=== PATIENT | male | born 1945 | race Caucasian/White ===

== ENCOUNTER → 2018-07-02 | Outpatient (CLI) | payer MEDICARE, BC | LOC: COL.RAD 10:04 | DX: M25.552 Pain in left hip (principal) | CPT/HCPCS: J3301; Q9967 ==

== ENCOUNTER → 2018-09-18 | Outpatient (CLI) | payer MEDICARE, BC | LOC: COL.RAD 10:30 | DX: M25.552 Pain in left hip (principal) | CPT/HCPCS: J3301; Q9967 ==

== ENCOUNTER → 2018-12-31 | Outpatient (CLI) | payer MEDICARE, BC | LOC: COL.RAD 09:34 | DX: M25.552 Pain in left hip (principal) | CPT/HCPCS: J3301; Q9967 ==

== ENCOUNTER 2019-06-12 12:03 | Day surgery (SDC) | payer MEDICARE, BC ==
[~2019-06-12] VITALS: Ht 180.3 cm; Wt 86.2 kg
[2019-06-12] VITALS (11 sets, daily range): BP systolic 107–149; BP diastolic 40–77; PULSE 63–87; TEMP 98–98.5
[2019-06-12] MEDS ORDERED: NORVASC 5MG5 MG/TAB PO (14:10)
[2019-06-12] MEDS ORDERED: TRULICITY1.5 MG/0.5 SQ (14:10)
[2019-06-12] MEDS ORDERED: LIPITOR20 MG PO (14:11)
[2019-06-12] MEDS ORDERED: ASPIRIN 81M81 MG/TA2 PO (14:11)
[2019-06-12] MEDS ORDERED: PLAVIX 75MG TAB75 MG PO (14:13)
[2019-06-12] MEDS ORDERED: FLOVENT 220MCG7.9 GM IH (14:14)
[2019-06-12] MEDS ORDERED: AMARYL4 MG PO (14:15)
[2019-06-12] MEDS ORDERED: COZAAR100 MG PO (14:15)
[2019-06-12] MEDS ORDERED: GLUCOPHAGE1000 MG PO (14:16)
[2019-06-12] MEDS ORDERED: VIAGRA50 M1 PO (14:17)
--- NOTE | 2019-06-12 16:10 | NUR ---
Patient up from OR. Alert and oriented x 3. Shift assessment complete. Kamara to dependent drainage with clear yellow urine. CBI infusing at slow rate. Family at bedside. Denies pain at this time. IV fluids infusing via pump per orders. Denies further needs at this time.
--- NOTE | 2019-06-12 18:31 | NUR ---
Patient has done well this afternoon. CBI continues to infuse at slow rate. Kamara maintained to dependent drainage with clear yellow urine present. Will occassionally turn pink then clear up. Denies pain or further needs at this time. Tolerating oral intake.
--- NOTE | 2019-06-12 20:00 | NUR ---
Report received. 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 Assessment complete. VS stable. Denies pain. States he still cant feel his left lower extremity due to the spinal. CBI infusing at a slow rate-light pink return. Discussed plan of care as well as calling for assistance to get out of bed. Verbalizes understanding. Requesting sleeping pill at 2200. Denies any other questions or concerns. Call light within reach. Bed in low position. Will monitor.
--- NOTE | 2019-06-12 21:30 | NUR ---
Called to desk c/o pain to bladder stating "I feel as if I need to pee and cant." CBI going at a moderate rate-urine light pink in color without clots noted. Bladder does feel disteneded. Irrigated with 60mls NS-immediate return-no clots noted. Adjusted tubing and laid back at 30 degree angle. Bladder drained 400mls light pink urine-no clots noted. States pain is better. Rate adjusted to slow- Will monitor to maintain light pink color.
[2019-06-13 03:50] VITALS: BP 157/75; PULSE 99; TEMP 98.3
--- NOTE | 2019-06-13 05:13 | NUR ---
Has rested well this shift after taking ambien. Denies pain. CBI has remained light pink all night at a slow rate. Tolerating PO with N/V. Denies questions or concerns. Call light within reach. WIll monitor.
[2019-06-13 08:28] VITALS: BP 133/72; PULSE 85; TEMP 98.4
--- NOTE | 2019-06-13 09:49 | NUR ---
Initial visit; Patient thanked Pipe Organ Mechanic for looking in on him and offering God's blessings.
--- NOTE | 2019-06-13 10:00 | NUR ---
Patient CBI has been clamped. Urine remains peach colored. Primed and pulled per orders. Primed bladder with 200 ml of NS. Aspirated 30 ml of fluid from balloon. Tolerated procedure well. Educated patient on 6 cup routine. Patient voided after de [place]sa pulled, pink clear urine .
--- NOTE | 2019-06-13 11:16 | NUR ---
SW met with the patient to discuss discharge plan. The patient [place] [facility] with his , Jinny. He reports independence with ADLs and has a prosthesis and crutches. The patient's PCP is Dr. Matt Coker and he receives his medications at [facility]. He reports no difficulties obtaining his meds. The patient does not have advanced directives in EMR, but he states that he does have them completed. He states his is his DPOA-HC. The patient plans to return home with his upon discharge. No additional needs at this time.
[2019-06-13 11:56] VITALS: BP 130/68; PULSE 77; TEMP 97.8
--- NOTE | 2019-06-13 15:11 | NUR ---
Patient states he has had x4 bloody bowel movements.
[2019-06-13 15:23] VITALS: BP 149/62; PULSE 80; TEMP 98.4
--- NOTE | 2019-06-13 17:20 | NUR ---
Contacted Dr. Baig for discharge orders. TORB orders entered into the computer
--- NOTE | 2019-06-13 18:00 | NUR ---
Discharge instructions provided to patient. Patient educated on increasing fluid intake to keep urine flowing freely. Educated on activity restrictions and follow up appointment. Patient instructed to hold blood thinner for at least [address] Baig. Educated patient on when to call provided and emphasized increasing fluid intake. All questions answered. INT to left hand discontinued. Catheter tip intact. Patient out by wheelchair with surgical staff and spouse.
== END 2019-06-13 18:00 | disposition home or self-care (01) ==
LOC: SDCO 12:03 → SURG 16:26 → SDCO 06-13 18:00
DX: N40.1 Benign prostatic hyperplasia with lower urinary tract symptoms (principal); N13.8 Other obstructive and reflux uropathy; R35.0 Frequency of micturition; R39.15 Urgency of urination; R39.12 Poor urinary stream; R35.1 Nocturia; E11.9 Type 2 diabetes mellitus without complications; I10 Essential (primary) hypertension; E78.5 Hyperlipidemia, unspecified; J30.2 Other seasonal allergic rhinitis; I65.29 Occlusion and stenosis of unspecified carotid artery; F17.210 Nicotine dependence, cigarettes, uncomplicated; Z89.611 Acquired absence of right leg above knee; K21.9 Gastro-esophageal reflux disease without esophagitis; G89.29 Other chronic pain; M79.604 Pain in right leg; Z79.82 Long term (current) use of aspirin; Z79.84 Long term (current) use of oral hypoglycemic drugs; Z79.02 Long term (current) use of antithrombotics/antiplatelets; Z79.52 Long term (current) use of systemic steroids; Z80.0 Family history of malignant neoplasm of digestive organs; Z83.3 Family history of diabetes mellitus; Z84.1 Family history of disorders of kidney and ureter; Z85.828 Personal history of other malignant neoplasm of skin
CPT/HCPCS: OP; J2250; J2405; J2704; J3010; J3480; J7030; J7042

== ENCOUNTER 2019-07-06 18:57 | Emergency (ER) | payer MEDICARE, BC ==
[~2019-07-06] VITALS: Ht 182.9 cm; Wt 86.4 kg
[~2019-07-06 18:57] MED LIST: AMARYL4 MG PO; ASPIRIN 81M81 MG/TA2 PO; COZAAR100 MG PO; FLOVENT 220MCG7.9 GM IH; GLUCOPHAGE1000 MG PO; LIPITOR20 MG PO; NORVASC 5MG5 MG/TAB PO; PLAVIX 75MG TAB75 MG PO; TRULICITY1.5 MG/0.5 SQ; VIAGRA50 M1 PO
[2019-07-06 19:46] LABS: HEMATOCRIT 42.6 % (42.0-52.0); HEMOGLOBIN 13.6 g/dl (13.5-18.0); MEAN CELL VOLUME 81 fl (80.0-100.0); MEAN CORPUSCULAR HEMOGLOBIN 26 pg (27.0-31.0); MEAN CORPUSCULAR HGB CONC 32 g/dl (33.0-37.0); MEAN PLATELET VOLUME 9.7 fl (7.4-10.4); PLATELET COUNT 365 K/mm3 (130-400); RED BLOOD COUNT 5.24 M/mm3 (4.20-5.60); REDCELL DISTRIBUTION WIDTH-CV 15.1 % (11.5-14.5)
[2019-07-06 20:07] LABS: ALANINE AMINOTRANSFERASE 12 U/L (21-72); ALBUMIN 4.5 gm/dL (3.5-5.0); ALKALINE PHOSPHATASE 101 U/L (50-136); ANION GAP 13 mmol/L (7-16); AST,SGOT 21 U/L (15-37); BILIRUBIN,TOTAL 0.4 mg/dL (0.0-1.0); BLOOD UREA NITROGEN 13 mg/dL (9-20); CALCIUM 9.4 mg/dL (8.4-10.2); CARBON DIOXIDE 20 mmol/L (22-30); CHLORIDE 101 mmol/L (98-107); CREATININE, serum 0.77 (0.66-1.25); GLUCOSE 217 mg/dL (74-106); POTASSIUM 4.3 mmol/L (3.4-5.0); SODIUM 135 mmol/L (137-145); TOTAL PROTEIN 7.4 gm/dL (6.4-8.2)
[2019-07-06 20:18] LABS: TROPONIN-I < 0.012 ng/mL (0.000-0.035)
[2019-07-06 20:34] LABS: COLLECTION METHOD IN
[2019-07-06 20:49] LABS: INR 1.3 (0.8-3.0); PROTHROMBIN TIME 15.1 SECONDS (9.7-12.8)
[2019-07-06 21:03] LABS: SQUAMOUS EPITHELIAL None Seen /hpf; URINE BACTERIA None Seen /hpf; URINE RBC >50 /hpf
[2019-07-06 21:07] LABS: PH 7 (5-8); URINE APPEARANCE Turbid; URINE BILIRUBIN Negative (NEGATIVE); URINE BLOOD 3+ (NEGATIVE); URINE COLOR Red; URINE GLUCOSE 2+ (NEGATIVE); URINE KETONE 1+ (NEGATIVE); URINE LEUKOCYTE ESTERASE Negative (NEGATIVE); URINE NITRATE Negative (NEGATIVE); URINE PROTEIN(semi-quant) 3+ (NEGATIVE); URINE UROBILINOGEN Negative (NEGATIVE)
[2019-07-06 21:11] LABS: BAND 1 % (0-10); BASOPHIL 1 % (0-2); EOSINOPHIL 1 % (0-4); LYMPHOCYTE 14 % (20.0-51.0); NEUTROPHILS 75 % (42.0-75.2); PLATELET ESTIMATE NORMAL (NORMAL)
[2019-07-06 22:04] VITALS: TEMP 97.7
[2019-07-06 23:44] VITALS: BP 153/79; PULSE 90
== END 2019-07-06 23:44 | disposition short-term general hospital (02) ==
LOC: COL.ER 18:57
PROVIDERS: Emergency Medicine
DX: R31.9 Hematuria, unspecified (principal); R33.9 Retention of urine, unspecified; E78.5 Hyperlipidemia, unspecified; I10 Essential (primary) hypertension; E11.9 Type 2 diabetes mellitus without complications; F17.210 Nicotine dependence, cigarettes, uncomplicated; Z79.82 Long term (current) use of aspirin; Z79.02 Long term (current) use of antithrombotics/antiplatelets; Z79.84 Long term (current) use of oral hypoglycemic drugs
CPT/HCPCS: J1170; J2405; J3010; J7030

== ENCOUNTER → 2019-08-29 | Outpatient (CLI) | payer MEDICARE, BC | LOC: COL.RAD 08:39 | DX: M79.18 Myalgia, other site (principal); M25.552 Pain in left hip | CPT/HCPCS: J3301; Q9967 ==

== ENCOUNTER → 2020-05-11 | Outpatient (CLI) | payer MEDICARE, BC ==
[~2020-05-11] VITALS: Ht 182.9 cm; Wt 85.0 kg
[~2020-05-11] MED LIST changes: +TRESIBA100 UNIT/1 SQ
[2020-05-11 09:21] VITALS: BP 165/86; PULSE 91
[2020-05-11 10:37] VITALS: BP 164/83; PULSE 87
== END ==
LOC: COL.RAD 09:00
DX: M54.5 Low back pain (principal); G89.29 Other chronic pain
CPT/HCPCS: J3301

== ENCOUNTER → 2020-06-25 | Outpatient (CLI) | payer MEDICARE, BC ==
[2020-06-25 13:55] VITALS: BP 173/82; PULSE 87
[2020-06-25 14:56] VITALS: BP 154/84; PULSE 75
== END ==
LOC: COL.RAD 13:29
DX: M54.40 Lumbago with sciatica, unspecified side (principal)
CPT/HCPCS: J3301; Q9965

== ENCOUNTER → 2020-08-06 | Outpatient (CLI) | payer MEDICARE, BC ==
[~2020-08-06] VITALS: Ht 182.9 cm; Wt 89.5 kg
[2020-08-06 09:46] VITALS: BP 172/77; PULSE 93
[2020-08-06 11:15] VITALS: BP 173/77; PULSE 99
== END ==
LOC: COL.RAD 09:30
DX: M51.26 Other intervertebral disc displacement, lumbar region (principal); M43.16 Spondylolisthesis, lumbar region; M48.061 Spinal stenosis, lumbar region without neurogenic claudication; M47.816 Spondylosis without myelopathy or radiculopathy, lumbar region; M54.40 Lumbago with sciatica, unspecified side
CPT/HCPCS: J3301

== ENCOUNTER → 2020-09-28 | Outpatient (CLI) | payer MEDICARE, BC | LOC: MHCPAIN 10:51 | DX: M47.817 Spondylosis without myelopathy or radiculopathy, lumbosacral region (principal); M54.5 Low back pain; M53.3 Sacrococcygeal disorders, not elsewhere classified; G89.29 Other chronic pain | CPT/HCPCS: G0463 ==

== ENCOUNTER → 2020-10-08 | Outpatient (CLI) | payer MEDICARE, BC | LOC: MHCPAIN 09:32 | DX: M47.817 Spondylosis without myelopathy or radiculopathy, lumbosacral region (principal); M54.5 Low back pain ==

== ENCOUNTER → 2020-10-13 | Outpatient (CLI) | payer MEDICARE, BC | LOC: MHCPAIN 08:08 | DX: M47.817 Spondylosis without myelopathy or radiculopathy, lumbosacral region (principal); M54.5 Low back pain; M53.3 Sacrococcygeal disorders, not elsewhere classified; F17.210 Nicotine dependence, cigarettes, uncomplicated; G89.29 Other chronic pain | CPT/HCPCS: G0463 ==

== ENCOUNTER → 2020-10-22 | Outpatient (CLI) | payer MEDICARE, BC | LOC: MHCPAIN 08:09 | DX: M47.817 Spondylosis without myelopathy or radiculopathy, lumbosacral region (principal); M54.5 Low back pain ==

== ENCOUNTER → 2020-10-27 | Outpatient (CLI) | payer MEDICARE, BC | LOC: MHCPAIN 13:15 | DX: M54.5 Low back pain (principal); G89.29 Other chronic pain | CPT/HCPCS: G0463 ==

== ENCOUNTER 2020-11-30 11:00 | Outpatient (RCR) | payer MEDICARE, BC | END 2020-12-25 15:32 | disposition home or self-care (01) | LOC: WSC | DX: M47.817 Spondylosis without myelopathy or radiculopathy, lumbosacral region (principal); M53.3 Sacrococcygeal disorders, not elsewhere classified ==

== ENCOUNTER 2021-03-09 10:00 | Outpatient (RCR) | payer MEDICARE, BC | END 2021-03-23 | disposition still patient (30) | LOC: WSC | DX: M48.062 Spinal stenosis, lumbar region with neurogenic claudication (principal); M47.26 Other spondylosis with radiculopathy, lumbar region; Z98.1 Arthrodesis status ==

== ENCOUNTER → 2021-04-08 | Outpatient (CLI) | payer MEDICARE, BC | LOC: COL.RAD 12:17 | DX: G89.29 Other chronic pain (principal); M25.552 Pain in left hip; M25.562 Pain in left knee | CPT/HCPCS: J3301; Q9967 ==

== ENCOUNTER 2021-05-18 09:00 | Outpatient (RCR) | payer MEDICARE, BC | END 2021-05-19 09:35 | disposition home or self-care (01) | LOC: WSC 09:00 | DX: M47.26 Other spondylosis with radiculopathy, lumbar region (principal); Z98.1 Arthrodesis status ==

== ENCOUNTER → 2021-05-26 | Outpatient (CLI) | payer MEDICARE, BC | LOC: COL.RAD 12:52 | DX: M43.26 Fusion of spine, lumbar region (principal); M47.818 Spondylosis without myelopathy or radiculopathy, sacral and sacrococcygeal region; M71.30 Other bursal cyst, unspecified site; M79.604 Pain in right leg; Z98.1 Arthrodesis status ==

== ENCOUNTER → 2021-12-27 | Outpatient (CLI) | payer MEDICARE, BC | LOC: COL.RAD 12:31 | DX: M25.562 Pain in left knee (principal); M25.552 Pain in left hip; G89.29 Other chronic pain | CPT/HCPCS: J3301; Q9967 ==

== ENCOUNTER 2022-04-28 09:39 | Emergency (ER) | payer MEDICARE, BC ==
[~2022-04-28] VITALS: Ht 177.8 cm; Wt 113.6 kg
[2022-04-28 09:40] VITALS: TEMP 97.7
[2022-04-28 10:03] LABS: BASO # 0.1 K/mm3 (0.0-0.2); BASO % 0.6 % (0.0-2.0); EOS # 0.3 K/mm3 (0.0-0.7); EOS % 2.4 % (0.0-4.0); GRAN # 7.4 K/mm3 (1.4-6.5); GRAN % 70.8 % (42.2-75.2); HEMATOCRIT 41.8 % (42.0-52.0); HEMOGLOBIN 13.7 g/dl (13.5-18.0); LYMPH # 1.5 K/mm3 (1.2-3.4); LYMPH % 14.3 % (20.0-51.0); MEAN CELL VOLUME 86 fl (80.0-100.0); MEAN CORPUSCULAR HEMOGLOBIN 28 pg (27-31); MEAN CORPUSCULAR HGB CONC 33 g/dl (33.0-37.0); MEAN PLATELET VOLUME 9.3 fl (7.4-10.4); MONO # 1.2 K/mm3 (0.1-0.6); PLATELET COUNT 268 K/mm3 (130-400); RED BLOOD COUNT 4.89 M/mm3 (4.20-5.60); REDCELL DISTRIBUTION WIDTH-CV 13.6 % (11.5-14.5)
[2022-04-28 10:12] LABS: INR 1.2 (0.8-3.0); PROTHROMBIN TIME 14.1 SECONDS (9.7-12.8)
[2022-04-28 10:15] LABS: PARTIAL THROMBOPLASTIN TIME 37.3 SECONDS (26.0-37.0)
[2022-04-28 10:18] LABS: ALANINE AMINOTRANSFERASE 18 U/L (0-55); ALBUMIN 3.7 gm/dL (3.4-4.8); ALKALINE PHOSPHATASE 112 U/L (40-150); ANION GAP 10 mmol/L (7-16); AST,SGOT 14 U/L (5-34); BILIRUBIN,TOTAL 0.3 mg/dL (0.2-1.2); BLOOD UREA NITROGEN 16 mg/dL (8-26); CALCIUM 9.2 mg/dL (8.4-10.2); CARBON DIOXIDE 21 mmol/L (23-31); CHLORIDE 109 mmol/L (98-107); GLUCOSE 87 mg/dL (70-99); POTASSIUM 4.1 mmol/L (3.5-4.5); SODIUM 140 mmol/L (136-145)
[2022-04-28 10:21] LABS: ALCOHOL(ethanol),MEDICAL < 10 mg/dL (0-10)
[2022-04-28 10:25] LABS: TROPONIN-I < 0.010 ng/mL (0.00-0.033)
[2022-04-28 10:30] LABS: COLLECTION METHOD CLEAN CATCH
[2022-04-28 10:40] LABS: PH 6 (5-8); SQUAMOUS EPITHELIAL 0-2 /hpf (0-10); URINE APPEARANCE Clear (CLEAR/HAZY); URINE BACTERIA None Seen /hpf (NONE SEEN); URINE BILIRUBIN Negative (NEGATIVE); URINE BLOOD Negative (NEGATIVE); URINE COLOR Yellow (YELLOW); URINE GLUCOSE Negative (NEGATIVE); URINE KETONE Negative (NEGATIVE); URINE LEUKOCYTE ESTERASE Negative (NEGATIVE); URINE NITRATE Negative (NEGATIVE); URINE PROTEIN(semi-quant) Negative (NEGATIVE); URINE UROBILINOGEN Negative (NEGATIVE)
[2022-04-28 12:10] VITALS: BP 126/81; PULSE 80
== END 2022-04-28 12:20 | disposition short-term general hospital (02) ==
LOC: COL.ER 09:39
PROVIDERS: Emergency Medicine
DX: I61.9 Nontraumatic intracerebral hemorrhage, unspecified (principal); I25.10 Atherosclerotic heart disease of native coronary artery without angina pectoris; I10 Essential (primary) hypertension; Z20.822 Contact with and (suspected) exposure to COVID-19; Z79.02 Long term (current) use of antithrombotics/antiplatelets
CPT/HCPCS: J7050